=== PATIENT | female | born 1965 | race Two or more races ===

== ENCOUNTER 2017-01-08 15:53 | Emergency (ER) | payer MEDICAID ==
[~2017-01-08] VITALS: Ht 165.1 cm; Wt 68.0 kg
[2017-01-08 15:53] VITALS: BP 142/82
== END 2017-01-08 16:43 | disposition home or self-care (01) ==
LOC: ER 15:55
DX: M54.2 Cervicalgia (principal); V43.62XA Car passenger injured in collision with other type car in traffic accident, initial encounter; Y93.89 Activity, other specified; Y92.488 Other paved roadways as the place of occurrence of the external cause; Y99.8 Other external cause status
CPT/HCPCS: 99281; A4606; Z7610; Z7502